=== PATIENT | male | born 2000 | race Caucasian/White ===

== ENCOUNTER 2018-05-29 18:52 | Emergency (ER) | payer OTHER ==
[2018-05-29 19:09] VITALS: BP 137/71
--- NOTE | 2018-05-29 19:21 | UC ---
Bite Injury/Animal HPI - HPI Summary HPI Summary: 17-year-old male comes in with a chief complaint of a tick bite to the right upper leg posterior aspect. Patient found it today in the shower. And then he pulled off there is a small red area there. He feels well otherwise. He is not sure how long the tick has been in there. - History of Current Complaint Chief Complaint: [facility] Stated Complaint: TICK BITE Time Seen by Provider: 05/29/18 19:12 Pain Intensity: 0 - Allergies/Home Medications Allergies/Adverse Reactions: Allergies Allergy/AdvReac Type Severity Reaction Status Date / Time Sulfa (Sulfonamide Allergy Hives Verified 05/29/18 19:10 Antibiotics) PMH/Surg Hx/FS Hx/Imm Hx Previously Healthy: Yes - Surgical History Surgical History: Yes Surgery Procedure, Year, and Place: shoulder- labrum repair 2017 - Family History Known Family History: Positive: Non-Contributory - Social History Alcohol Use: Occasionally Substance Use Type: None Smoking Status (MU): Never Smoked Tobacco Amount Used/How Often: 1/2 can/day - Immunization History Most Recent Influenza Vaccination: has not had Vaccination Up to Date: Yes Review of Systems All Other Systems Reviewed And Are Negative: Yes Constitutional: Positive: Negative Skin: Positive: Other - SEE HPI Eyes: Positive: Negative ENT: Positive: Negative Respiratory: Positive: Negative Cardiovascular: Positive: Negative Gastrointestinal: Positive: Negative Motor: Positive: Negative Neurovascular: Positive: Negative Musculoskeletal: Positive: Negative Neurological: Positive: Negative Psychological: Positive: Negative Is Patient Immunocompromised?: No Physical Exam Triage Information Reviewed: Yes Appearance: Well-Appearing, No Pain Distress, Well-Nourished Vital Signs: Initial Vital Signs Temp 99.0 F 05/29/18 19:04 Pulse 63 05/29/18 19:04 Resp 16 05/29/18 19:04 BP 137/71 05/29/18 19:04 Pulse Ox 100 05/29/18 19:04 Vital Signs Reviewed: Yes Eye Exam: Normal Eyes: Positive: Conjunctiva Clear Neck: Positive: Supple Respiratory: Positive: No respiratory distress Musculoskeletal Exam: Normal Musculoskeletal: Positive: ROM Intact Neurological: Positive: Alert, Muscle Tone Normal Psychological: Positive: Age Appropriate Behavior Skin: Positive: Other - RT MEDIAL/POSTERIOR THIGH 6MM ERYTHEMATOUS KM. NO BULLS EYE. NO STREAKING. Bite Injury Course/Dx - Differential Dx/Diagnosis Provider Diagnosis: Tick bite of right lower leg Discharge - Sign-Out/Discharge Documenting (check all that apply): Patient Departure All imaging exams completed and their final reports reviewed: No Studies - Discharge Plan Condition: Stable Disposition: HOME Prescriptions: DOXYcycline CAP(*) [DOXYcycline 100MG CAP(*)] 200 mg PO ONCE #2 cap Patient Education Materials: Tick Bite (ED) Referrals: Bijan Romero MD [Primary Care Provider] - Additional Instructions: FOLLOW UP WITH YOUR DOCTOR IF NOT COMPLETELY IMPROVED. GET REEVALUATED SOONER IF YOUR CONDITION WORSENS OR ANY QUESTIONS OR CONCERNS. - Billing Disposition and Condition Condition: STABLE Disposition: Home
== END 2018-05-29 19:30 | disposition home or self-care (01) ==
LOC: UCCORT 18:52
DX: S80.861A Insect bite (nonvenomous), right lower leg, initial encounter (principal); Z88.2 Allergy status to sulfonamides; W57.XXXA Bitten or stung by nonvenomous insect and other nonvenomous arthropods, initial encounter; Y92.9 Unspecified place or not applicable
CPT/HCPCS: 99202; G0463

== ENCOUNTER 2018-07-21 15:45 | Emergency (ER) | payer OTHER ==
[2018-07-21 16:03] VITALS: BP 130/67
--- NOTE | 2018-07-21 16:06 | UC ---
Throat Pain/Nasal Dion HPI - HPI Summary HPI Summary: complaints of sore throat, cough and nasal congestion, with body aches since 07/18/18 - History of Current Complaint Chief Complaint: UCGeneralIllness Stated Complaint: THROAT COMPLAINT Time Seen by Provider: 07/21/18 16:01 Hx Obtained From: Patient Onset/Duration: Sudden Onset, Lasting Days Severity: Mild Pain Intensity: 3 Associated Signs & Symptoms: Positive: Dysphagia, Sinus Discomfort, Nasal Discharge - Allergies/Home Medications Allergies/Adverse Reactions: Allergies Allergy/AdvReac Type Severity Reaction Status Date / Time Sulfa (Sulfonamide Allergy Hives Verified 07/21/18 16:03 Antibiotics) PMH/Surg Hx/FS Hx/Imm Hx Previously Healthy: Yes - Surgical History Surgical History: Yes Surgery Procedure, Year, and Place: shoulder- labrum repair 2017 - Family History Known Family History: Negative: Cardiac Disease, Hypertension - Social History Alcohol Use: Occasionally Substance Use Type: None Smoking Status (MU): Never Smoked Tobacco Amount Used/How Often: 1/2 can/day - Immunization History Most Recent Influenza Vaccination: has not had Vaccination Up to Date: Yes Review of Systems All Other Systems Reviewed And Are Negative: Yes ENT: Positive: Sore Throat, Nasal Discharge Respiratory: Positive: Cough Musculoskeletal: Positive: Myalgia Is Patient Immunocompromised?: No Physical Exam Triage Information Reviewed: Yes Appearance: Well-Nourished, Ill-Appearing, Pain Distress Vital Signs: Initial Vital Signs Temp 98.4 F 07/21/18 16:00 Pulse 69 07/21/18 16:00 Resp 18 07/21/18 16:00 BP 130/67 07/21/18 16:00 Pulse Ox 99 07/21/18 16:00 Eye Exam: Normal ENT: Positive: Pharyngeal erythema, Nasal congestion, Nasal drainage, TM dull Dental Exam: Normal Neck exam: Normal Respiratory Exam: Normal Respiratory: Positive: Chest non-tender, Lungs clear, Normal breath sounds Cardiovascular Exam: Normal Cardiovascular: Positive: RRR, No Murmur, Pulses Normal Abdominal Exam: Normal Abdomen Description: Positive: Nontender, No Organomegaly, Soft Bowel Sounds: Positive: Present Musculoskeletal Exam: Normal Neurological Exam: Normal Psychological Exam: Normal Skin Exam: Normal Throat Pain/Nasal Course/Dx - Course Course Of Treatment: hx obtained, exam performed ,meds reviewed, strep test performed, patient has not used any OTC meds. - Differential Dx/Diagnosis Differential Diagnosis/HQI/PQRI: Influenza, Otitis Media, Pharyngitis, Sinusitis , URI Provider Diagnosis: Rhinosinusitis, Pharyngitis Discharge - Sign-Out/Discharge Documenting (check all that apply): Patient Departure All imaging exams completed and their final reports reviewed: No Studies - Discharge Plan Condition: Stable Disposition: HOME Patient Education Materials: Rhinosinusitis (ED) Referrals: Bijan Romero MD [Primary Care Provider] - Additional Instructions: 1. salt water gargles multiple times a day for the drainage down your throat. 2. Start a daily zyrtec or claritin for the next 2-3 weeks 3. Ibuprofen for body aches and sore throat 4. Increase fluid intake and get rest 5. Follow up if not improving in 7 -10 days - Billing Disposition and Condition Condition: STABLE Disposition: Home
== END 2018-07-21 16:37 | disposition home or self-care (01) ==
LOC: UCCORT 15:45
DX: J32.9 Chronic sinusitis, unspecified (principal); J02.9 Acute pharyngitis, unspecified; Z88.2 Allergy status to sulfonamides; F17.220 Nicotine dependence, chewing tobacco, uncomplicated
CPT/HCPCS: 87651; 99211; G0463